=== PATIENT | male | born 1975 | race Caucasian/White ===

== ENCOUNTER 2017-05-03 20:02 | Inpatient (IN) | payer BC, OTHER ==
[2017-05-03 20:51] VITALS: BMI 28.6
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
[2017-05-03] MEDS ORDERED: guaiFENesin/D-METHORPHAN HB 10 ML UNIT-DOSE CUPS PO PRN (21:23)
[2017-05-03] MEDS ORDERED: LOPERAMIDE HCL 2 MG CAPSULE PO PRN (21:23)
[2017-05-03] MEDS ORDERED: MAG HYDROX/AL HYDROX/SIMETH 30 ML UNIT-DOSE CUP PO PRN (21:23)
[2017-05-03] MEDS ORDERED: IBUPROFEN 400 MG TABLET (FP) PO PRN (21:23)
[2017-05-03] MEDS ORDERED: diazePAM 5 MG TABLET PO ONE (21:23)
[2017-05-03] MEDS ORDERED: METHADONE HCL 10 MG TABLET (FOR DETOX USE ONLY) PO ONE ×2 (21:23→23:00)
[2017-05-03] MEDS ORDERED: P-EPHED 60MG/TRIPROLIDI 2.5MG TABLET PO PRN (21:23)
[2017-05-03] MEDS ORDERED: NICOTINE POLACRILEX 2 MG GUM BC PRN (21:23)
[2017-05-03] MEDS ORDERED: MENTHOL/PHENOL 1 EACH UD MM PRN (21:23)
[2017-05-03] MEDS ORDERED: MAGNESIUM CITRATE 300 ML BOTTLE PO PRN (21:23)
[2017-05-03] MEDS ORDERED: MAGNESIUM HYDROX 2400MG/30ML ORAL SUSPENSION 30 ML CUP PO PRN (21:23)
[2017-05-03] MEDS ORDERED: ACETAMINOPHEN 325 MG TABLET (FP) PO PRN (21:23)
[2017-05-03] MEDS: diazePAM 5 MG TABLET PO SCH (22:53)
[2017-05-03] MEDS: THIAMINE HCL 100 MG TABLET (FP) PO SCH (22:54)
[2017-05-03] MEDS: NICOTINE 14 MG/24 HOURS TOPICAL PATCH TD SCH (23:04)
[2017-05-04] MEDS: diazePAM 5 MG TABLET PO SCH ×3 (05:48→22:55)
[2017-05-04] MEDS ORDERED: METHADONE HCL 10 MG TABLET (FOR DETOX USE ONLY) PO SCH (10:00)
[2017-05-04] MEDS: PRENATAL VITAMINS W/ FOLIC ACID TABLET (FP) PO SCH (10:35)
[2017-05-04] MEDS: NICOTINE 14 MG/24 HOURS TOPICAL PATCH TD SCH (10:35)
[2017-05-04 10:37] LABS: ALBUMIN 3.2 g/dl (3.4-5.0); ANION GAP 7 (8-16); CO2 29 mmol/L (21-32); GLUCOSE,RANDOM 89 mg/dL (74-106); SGOT/AST 17 U/L (15-37); SGPT/ALT 23 U/L (12-78)
[2017-05-04 10:39] LABS: ALK PHOS 92 U/L (45-117); BILIRUBIN,TOTAL 0.6 mg/dL (0.2-1.0); CALCIUM 8.8 mg/dL (8.5-10.1); CREATININE 0.7 mg/dL (0.7-1.3); TOT PROT 5.9 g/dl (6.4-8.2)
[2017-05-04 10:46] LABS: MCH 29.4 pg (25.7-33.7); MCHC 34.4 g/dl (32.0-35.9); MEAN CELL VOLUME 85.5 fl (80-96); MEAN PLT VOLUME 8.8 fl (7.5-11.1); PLATELET COUNT 172 K/MM3 (134-434); RDW 13.5 % (11.9-15.9); WHITE BLOOD COUNT 5.3 K/mm3 (4.0-10.0)
--- NOTE | 2017-05-04 19:07 | PN ---
[facility] CIWA - CIWA Score Nausea/Vomitin-Mild Nausea/No Vomiting Muscle Tremors: 4-Moderate,w/Arms Extend Anxiety: 3 Agitation: 1-Slight > Activity Paroxysmal Sweats: 3 Orientation: 2-Disoriented Date<2 days Tacttile Disturbances: 2-Mild Itch/Numbness/Burn Auditory Disturbances: 0-None Visual Disturbances: 0-None Headache: 4-Moderately Severe CIWA-Ar Total Score: 20 BHS COWS - Scale Resting Pulse: 1= [place] 81-100 Sweatin=Flushed/Facial Moisture Restless Observation: 1= Difficult to Sit Still Pupil Size: 0= Normal to Room Light Bone or Joint Aches: 2= Severe Diffuse Aches Runny Nose/ Eye Tearin= Runny Nose/Eyes GI Upset > 30mins: 2= Nausea/Diarrhea Tremor Observation of Outstretched Hands: 2= Slight Tremor Visible Yawning Observation: 1= 1-2x During Session Anxiety or Irritability: 2=Irritable/Anxious Goose Flesh Skin: 3=Piloerection COWS Score: 18 S Progress Note (SOAP) Subjective: Body Aches, Sweating, [place], Diarrhea. Objective: PT. A & O X 2 (DISORIENTED ABOUT DAY / DATE). NO ACUTE DISTRESS. 05/04/17 19:04 Vital Signs Temperature 97.1 F L 05/04/17 17:42 Pulse Rate 75 05/04/17 17:42 Respiratory Rate 19 05/04/17 17:42 Blood Pressure 91/51 05/04/17 17:42 O2 Sat by Pulse Oximetry (%) Laboratory Tests 05/04/17 05/04/17 07:00 07:00 WBC 5.3 RBC 4.63 Hgb 13.6 Hct 39.6 MCV 85.5 MCHC 34.4 RDW 13.5 Plt Count 172 D MPV 8.8 Sodium 140 Potassium 4.0 Chloride 104 Carbon Dioxide 29 Anion Gap 7 L BUN 10 Creatinine 0.7 Creat Clearance w eGFR > 60 Random Glucose 89 Calcium 8.8 Total Bilirubin 0.6 D AST 17 D ALT 23 D Alkaline Phosphatase 92 D Total Protein 5.9 L Albumin 3.2 L LABS NOTED. 05/04/17 19:07 Assessment: 05/04/17 19:05 WITHDRAWAL SYMPTOMS. Plan: CONTINUE DETOX.
--- NOTE | 2017-05-04 19:23 | EKG ---
Test Reason : Blood Pressure : / mmHG Vent. Rate : 070 BPM Atrial Rate : 070 BPM P-R Int : 150 ms QRS Dur : 088 ms QT Int : 416 ms P-R-T Axes : 070 054 035 degrees QTc Int : 449 ms NORMAL SINUS RHYTHM POSSIBLE LEFT ATRIAL ENLARGEMENT BORDERLINE ECG NO PREVIOUS ECGS AVAILABLE Confirmed by LIYAH HARRY MD ([id number]) on 05/04/2017 7:23:00 PM Referred By: Confirmed By:LIYAH HARRY MD
[2017-05-04] MEDS: THIAMINE HCL 100 MG TABLET (FP) PO SCH (22:55)
[2017-05-05] MEDS: diazePAM 5 MG TABLET PO PRN ×2 (05:37→13:51)
[2017-05-05] MEDS: diazePAM 5 MG TABLET PO SCH ×2 (10:23→22:35)
[2017-05-05] MEDS: METHADONE HCL 5 MG TABLET (FOR DETOX USE ONLY) PO SCH (10:23)
[2017-05-05] MEDS: PRENATAL VITAMINS W/ FOLIC ACID TABLET (FP) PO SCH (10:23)
[2017-05-05] MEDS: NICOTINE 14 MG/24 HOURS TOPICAL PATCH TD SCH (10:24)
--- NOTE | 2017-05-05 15:46 | PN ---
S CIWA - CIWA Score Nausea/Vomitin Muscle Tremors: 4-Moderate,w/Arms Extend Anxiety: 4-Mod. Anxious/Guarded Agitation: 4-Moderately Restless Paroxysmal Sweats: 3 Orientation: 0-Oriented Tacttile Disturbances: 1-Very Mild Itch/Numbness Auditory Disturbances: 0-None Visual Disturbances: 0-None Headache: 3-Moderate CIWA-Ar Total Score: 22 BHS COWS - Scale Resting Pulse: 1= AR 81-100 Sweatin=Flushed/Facial Moisture Restless Observation: 3= Extraneous Movement Pupil Size: 0= Normal to Room Light Bone or Joint Aches: 2= Severe Diffuse Aches Runny Nose/ Eye Tearin= Runny Nose/Eyes GI Upset > 30mins: 1= Stomach Cramp Tremor Observation of Outstretched Hands: 2= Slight Tremor Visible Yawning Observation: 1= 1-2x During Session Anxiety or Irritability: 2=Irritable/Anxious Goose Flesh Skin: 0=Smooth Skin COWS Score: 16 BHS Progress Note (SOAP) Subjective: Anxious, sweating, stomach ache, interrupted sleep, tremor, chills Objective: 05/05/17 15:45 Last Vital Signs Temp Pulse Resp BP Pulse Ox 97.9 F 81 18 129/85 05/05/17 14:03 05/05/17 14:03 05/05/17 14:03 05/05/17 14:03 Laboratory Tests 05/04/17 05/04/17 05/04/17 07:00 07:00 07:00 WBC 5.3 RBC 4.63 Hgb 13.6 Hct 39.6 MCV 85.5 MCHC 34.4 RDW 13.5 Plt Count 172 D MPV 8.8 Sodium 140 Potassium 4.0 Chloride 104 Carbon Dioxide 29 Anion Gap 7 L BUN 10 Creatinine 0.7 Creat Clearance w eGFR > 60 Random Glucose 89 Calcium 8.8 Total Bilirubin 0.6 D AST 17 D ALT 23 D Alkaline Phosphatase 92 D Total Protein 5.9 L Albumin 3.2 L RPR Titer Nonreactive Labs noted Assessment: 05/05/17 15:46 Withdrawal symptoms Plan: Continue detox Encouraged to drink lots of water
[2017-05-05] MEDS: THIAMINE HCL 100 MG TABLET (FP) PO SCH (22:35)
[2017-05-05] MEDS: diphenhydrAMINE HCL 50 MG CAPSULE PO PRN (22:35)
[2017-05-06] MEDS: diazePAM 5 MG TABLET PO PRN ×2 (05:52→17:19)
--- NOTE | 2017-05-06 09:12 | PN ---
BHS Progress Note (SOAP) Subjective: Sweating,interrupted sleep,restless. C/O of pruritic rash on chest. Objective: 05/06/17 09:09 Vital Signs - 8 hr 05/06/17 05/06/17 03:30 06:19 Temperature 97.2 F L Pulse Rate 80 Respiratory 18 16 Rate Blood Pressure 122/87 Laboratory Tests 05/04/17 05/04/17 05/04/17 07:00 07:00 07:00 WBC 5.3 RBC 4.63 Hgb 13.6 Hct 39.6 MCV 85.5 MCHC 34.4 RDW 13.5 Plt Count 172 D MPV 8.8 Sodium 140 Potassium 4.0 Chloride 104 Carbon Dioxide 29 Anion Gap 7 L BUN 10 Creatinine 0.7 Creat Clearance w eGFR > 60 Random Glucose 89 Calcium 8.8 Total Bilirubin 0.6 D AST 17 D ALT 23 D Alkaline Phosphatase 92 D Total Protein 5.9 L Albumin 3.2 L RPR Titer Nonreactive Chest : dry,reddish, sand paper like rash. Assessment: 05/06/17 09:11 Withdrawal sx. Non-specific dermatitis Plan: Hydrocortisone cream 1% to chest qid Continue detox
[2017-05-06] MEDS: METHADONE HCL 5 MG TABLET (FOR DETOX USE ONLY) PO SCH (10:58)
[2017-05-06] MEDS: diazePAM 5 MG TABLET PO SCH ×2 (10:59→22:37)
[2017-05-06] MEDS: PRENATAL VITAMINS W/ FOLIC ACID TABLET (FP) PO SCH (10:59)
[2017-05-06] MEDS: NICOTINE 14 MG/24 HOURS TOPICAL PATCH TD SCH (12:12)
[2017-05-06] MEDS: HYDROCORTISONE 1% TOPICAL CREAM 30 GM TUBE TP SCH ×4 (12:21→22:38)
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
[2017-05-06] MEDS: THIAMINE HCL 100 MG TABLET (FP) PO SCH (22:37)
[2017-05-06] MEDS: diphenhydrAMINE HCL 50 MG CAPSULE PO PRN (22:38)
[2017-05-07] MEDS ORDERED: METHADONE HCL 10 MG TABLET (FOR DETOX USE ONLY) PO SCH (10:00)
[2017-05-07] MEDS ORDERED: diazePAM 5 MG TABLET PO SCH (10:00)
[2017-05-07] MEDS: PRENATAL VITAMINS W/ FOLIC ACID TABLET (FP) PO SCH (10:40)
[2017-05-07] MEDS: HYDROCORTISONE 1% TOPICAL CREAM 30 GM TUBE TP SCH ×4 (10:40→22:52)
[2017-05-07] MEDS: NICOTINE 14 MG/24 HOURS TOPICAL PATCH TD SCH (10:40)
--- NOTE | 2017-05-07 12:13 | PN ---
S Progress Note (SOAP) Subjective: ANXIETY,SWEATS/FATIGUE. Objective: 05/07/17 12:12 Vital Signs Temperature 99.2 F 05/07/17 09:46 Pulse Rate 98 H 05/07/17 09:46 Respiratory Rate 18 05/07/17 09:46 Blood Pressure 130/81 05/07/17 09:46 O2 Sat by Pulse Oximetry (%) Laboratory Last Values WBC 5.3 K/mm3 (4.0-10.0) 05/04/17 07:00 RBC 4.63 M/mm3 (4.00-5.60) 05/04/17 07:00 Hgb 13.6 GM/dL (11.7-16.9) 05/04/17 07:00 Hct 39.6 % (35.4-49) 05/04/17 07:00 MCV 85.5 fl (80-96) 05/04/17 07:00 MCHC 34.4 g/dl (32.0-35.9) 05/04/17 07:00 RDW 13.5 % (11.9-15.9) 05/04/17 07:00 Plt Count 172 K/MM3 (134-434) D 05/04/17 07:00 MPV 8.8 fl (7.5-11.1) 05/04/17 07:00 Sodium 140 mmol/L (136-145) 05/04/17 07:00 Potassium 4.0 mmol/L (3.5-5.1) 05/04/17 07:00 Chloride 104 mmol/L (98-107) 05/04/17 07:00 Carbon Dioxide 29 mmol/L (21-32) 05/04/17 07:00 Anion Gap 7 (8-16) L 05/04/17 07:00 BUN 10 mg/dL (7-18) 05/04/17 07:00 Creatinine 0.7 mg/dL (0.7-1.3) 05/04/17 07:00 Creat Clearance w eGFR > 60 (>60) 05/04/17 07:00 Random Glucose 89 mg/dL (74-106) 05/04/17 07:00 Calcium 8.8 mg/dL (8.5-10.1) 05/04/17 07:00 Total Bilirubin 0.6 mg/dL (0.2-1.0) D 05/04/17 07:00 AST 17 U/L (15-37) D 05/04/17 07:00 ALT 23 U/L (12-78) D 05/04/17 07:00 Alkaline Phosphatase 92 U/L (45-117) D 05/04/17 07:00 Total Protein 5.9 g/dl (6.4-8.2) L 05/04/17 07:00 Albumin 3.2 g/dl (3.4-5.0) L 05/04/17 07:00 RPR Titer Nonreactive (NONREACTIVE) 05/04/17 07:00 Hepatitis C Antibody <0.1 s/co ratio (0.0-0.9) 05/03/17 07:00 Assessment: 05/07/17 12:12 WITHDRAWAL SX Plan: CONTINUE DETOX
[2017-05-07] MEDS: diphenhydrAMINE HCL 50 MG CAPSULE PO PRN (22:52)
[2017-05-07] MEDS: THIAMINE HCL 100 MG TABLET (FP) PO SCH (22:52)
[2017-05-08] MEDS ORDERED: METHADONE HCL 5 MG TABLET (FOR DETOX USE ONLY) PO SCH (06:00)
[2017-05-08 06:46] VITALS: BP 134/91; PULSE 82; TEMP 96.2
--- NOTE | 2017-05-08 09:21 | DS ---
[facility] Detox Discharge Summary Admission Date: 05/03/17 Discharge Date: 05/08/17 - History Present History: Cannabis Dependence, Cocaine Dependence, Opioid Dependence, Sedative Dependence Additional Comments: DETOX COMPLETED. ALERT O X 3. NAD. REFERRED TO -[facility] FOR AFTERCARE. Pertinent Past History: CHRONIC BACK PAIN - Physical Exam Results Vital Signs: Vital Signs Temperature 96.2 F L 05/08/17 06:46 Pulse Rate 82 05/08/17 06:46 Respiratory Rate 18 05/08/17 06:46 Blood Pressure 134/91 05/08/17 06:46 O2 Sat by Pulse Oximetry (%) Pertinent Admission Physical Exam Findings: WITHDRAWAL SX Laboratory Last Values WBC 5.3 K/mm3 (4.0-10.0) 05/04/17 07:00 RBC 4.63 M/mm3 (4.00-5.60) 05/04/17 07:00 Hgb 13.6 GM/dL (11.7-16.9) 05/04/17 07:00 Hct 39.6 % (35.4-49) 05/04/17 07:00 MCV 85.5 fl (80-96) 05/04/17 07:00 MCHC 34.4 g/dl (32.0-35.9) 05/04/17 07:00 RDW 13.5 % (11.9-15.9) 05/04/17 07:00 Plt Count 172 K/MM3 (134-434) D 05/04/17 07:00 MPV 8.8 fl (7.5-11.1) 05/04/17 07:00 Sodium 140 mmol/L (136-145) 05/04/17 07:00 Potassium 4.0 mmol/L (3.5-5.1) 05/04/17 07:00 Chloride 104 mmol/L (98-107) 05/04/17 07:00 Carbon Dioxide 29 mmol/L (21-32) 05/04/17 07:00 Anion Gap 7 (8-16) L 05/04/17 07:00 BUN 10 mg/dL (7-18) 05/04/17 07:00 Creatinine 0.7 mg/dL (0.7-1.3) 05/04/17 07:00 Creat Clearance w eGFR > 60 (>60) 05/04/17 07:00 Random Glucose 89 mg/dL (74-106) 05/04/17 07:00 Calcium 8.8 mg/dL (8.5-10.1) 05/04/17 07:00 Total Bilirubin 0.6 mg/dL (0.2-1.0) D 05/04/17 07:00 AST 17 U/L (15-37) D 05/04/17 07:00 ALT 23 U/L (12-78) D 05/04/17 07:00 Alkaline Phosphatase 92 U/L (45-117) D 05/04/17 07:00 Total Protein 5.9 g/dl (6.4-8.2) L 05/04/17 07:00 Albumin 3.2 g/dl (3.4-5.0) L 05/04/17 07:00 RPR Titer Nonreactive (NONREACTIVE) 05/04/17 07:00 Hepatitis C Antibody <0.1 s/co ratio (0.0-0.9) 05/03/17 07:00 - Treatment Hospital Course: Detox Protocol Followed, Detoxed Safely, Responded well, Discharged Condition Good, Rehab Referral Accepted Patient has Accepted a Rehab Referral to: [facility] - Medication Discharge Medications: Ambulatory Orders NK [No Known Home Medication] 05/03/17 - Diagnosis (1) Cannabis dependence, uncomplicated Current Visit: Yes Status: Chronic (2) Cocaine dependence, uncomplicated Current Visit: Yes Status: Chronic (3) Nicotine dependence Current Visit: Yes Status: Chronic Qualifiers: Nicotine product type: cigarettes Substance use status: uncomplicated Qualified Code(s): F17.210 - Nicotine dependence, cigarettes, uncomplicated (4) Opioid dependence with withdrawal Current Visit: Yes Status: Chronic (5) Sedative, hypnotic or anxiolytic dependence with withdrawal, uncomplicated Current Visit: Yes Status: Chronic - AMA Did Patient Leave Against Medical Advice: No
== END 2017-05-08 09:25 | disposition home or self-care (01) | DRG 773 ==
LOC: YASAS 20:02 → Y3N 21:36
PROVIDERS: ADMIT Internal Medicine; ATTEND Internal Medicine
PROC: HZ2ZZZZ Detoxification Services for Substance Abuse Treatment (ICD-10-PCS; principal; 2017-05-08)
DX: F11.23 Opioid dependence with withdrawal (principal); F13.230 Sedative, hypnotic or anxiolytic dependence with withdrawal, uncomplicated; F14.20 Cocaine dependence, uncomplicated; F12.20 Cannabis dependence, uncomplicated; F17.210 Nicotine dependence, cigarettes, uncomplicated
CPT/HCPCS: 36415; 71020-TC; 80053; 85027; 86593; 86803; 93005; 93010

== ENCOUNTER 2017-10-27 10:47 | Inpatient (IN) | payer BC ==
[2017-10-27 11:03] VITALS: BMI 31.6
--- NOTE | 2017-10-27 11:50 | HP ---
COWS - Scale Resting Pulse: 1= [place] 81-100 Sweatin=Flushed/Facial Moisture Restless Observation: 1= Difficult to Sit Still Pupil Size: 0= Normal to Room Light Bone or Joint Aches: 2= Severe Diffuse Aches Runny Nose/ Eye Tearin= Runny Nose/Eyes GI Upset > 30mins: 2= Nausea/Diarrhea Tremor Observation: 2= Slight Tremor Visible Yawning Observation: 2= >3x During Session Anxiety or Irritability: 2=Irritable/Anxious Goose Flesh Skin: 3=Piloerection COWS Score: 19 Admission ROS S - HPI Chief Complaint: I am here for detox and get it right. Allergies/Adverse Reactions: Allergies Allergy/AdvReac Type Severity Reaction Status Date / Time cocoa Allergy Severe Swelling Verified 10/27/17 11:15 No Known Drug Allergies Allergy Unknown Verified 10/27/17 11:15 chocolate Allergy Severe Swelling Uncoded 10/27/17 11:15 History of Present Illness: pt is a 42yr old male with a history of heroin dependence seeking detox for treatment. Exam Limitations: No Limitations - Ebola screening Have you traveled outside of the country in the last 21 days: No Have you had contact with anyone from an Ebola affected area: No Have you been sick,other than usual withdrawal symptoms: No Do you have a fever: No - Review of Systems Constitutional: Chills, Diaphoresis EENT: reports: No Symptoms Reported Respiratory: reports: No Symptoms reported Cardiac: reports: No Symptoms Reported GI: reports: Constipated, Poor Appetite, Poor Fluid Intake, Indigestion : reports: No Symptoms Reported Musculoskeletal: reports: No Symptoms Reported Integumentary: reports: Flushing, Rash (to chest and upper back area acne), Sweating Neuro: reports: Tingling, Tremors Endocrine: reports: Excessive Sweating, Flushing, Intolerance to Cold, Intolerance to Heat Hematology: reports: No Symptoms Reported Psychiatric: reports: Judgement Intact, Mood/Affect Appropiate, Orientated x3, Agitated, Anxious Other Systems: Reviewed and Negative Patient History - Patient Medical History Hx Anemia: No Hx Asthma: No Hx Chronic Obstructive Pulmonary Disease (COPD): No Hx Cancer: No Hx Cardiac Disorders: No Hx Congestive Heart Failure: No Hx Hypertension: No Hx Hypercholesterolemia: No Hx Pacemaker: No HX Cerebrovascular Accident: No Hx Seizures: No Hx Dementia: No Hx Diabetes: No Hx Gastrointestinal Disorders: No Hx Liver Disease: No Hx Genitourinary Disorders: No Hx Sexually Transmitted Disorders: No Hx Renal Disease (ESRD): No Hx Thyroid Disease: No Hx Human Immunodeficiency Virus (HIV): No (neg) Hx Hepatitis C: No (neg) Hx Depression: No Hx Suicide Attempt: No (denies) Hx Bipolar Disorder: No Hx Schizophrenia: No - Patient Surgical History Past Surgical History: Yes Hx Neurologic Surgery: No Hx Cataract Extraction: No Hx Cardiac Surgery: No Hx Lung Surgery: No Hx Breast Surgery: No Hx Breast Biopsy: No Hx Abdominal Surgery: No Hx Appendectomy: No Hx Cholecystectomy: No Hx Genitourinary Surgery: No Hx Section: No Hx Orthopedic Surgery: No Other Surgical History: HERNIA REPAIR AT AGE 1 left Anesthesia Reaction: No - PPD History Documented Results: Positive w/proof PPD to be Administered?: No - Reproductive History Patient is a Female of Child Bearing Age (11 -55 yrs old): No - Smoking Cessation Smoking history: Current every day smoker Have you smoked in the past 12 months: Yes Aproximately how many cigarettes per day: 10 If you are a former smoker, when did you quit?: 6 MONTHS AGO Cigars Per Day: 0 Hx Chewing Tobacco Use: No Initiated information on smoking cessation: Yes 'Breaking Loose' booklet given: 10/27/17 - Substance & Tx. History Hx Substance Use: No Substance Use Type: Heroin Hx Substance Use Treatment: Yes (last detox 03/2017 [facility]) - Substances Abused Heroin Route: Inhalation Frequency: Daily Amount used: 6-8 BAGS Age of first use: 23 Date of Last Use: 10/27/17 Non-Rx Methadone Route: Oral Frequency: 1-2 times per week Amount used: 50MG Age of first use: 22 Date of Last Use: 10/25/17 Family Disease History - Family Disease History Family Disease History: Diabetes: Grandparent (LUNGS), Mother (METASTATIC CA. AND ), Brother, [place]: Grandparent, Mother Admission Physical Exam [facility] - Vital Signs Vital Signs: Vital Signs - 24 hr 10/27/17 10:50 Temperature 98.2 F Pulse Rate 94 H Respiratory 18 Rate Blood Pressure 136/75 - Physical General Appearance: Yes: Appropriately Dressed, Obese, Tremorous, Irritable, Sweating, Anxious HEENTM: Yes: Normal Voice, Tm's normal Respiratory: Yes: Lungs Clear, Normal Breath Sounds, No Respiratory Distress Breast: Yes: Within Normal Limits Cardiology: Yes: Regular Rhythm, Regular Rate, S1, S2 Abdominal: Yes: Normal Bowel Sounds, Non Tender, Soft Genitourinary: Yes: Within Normal Limits Back: Yes: Normal Inspection Musculoskeletal: Yes: full range of Motion, Back pain Extremities: Yes: Normal Inspection, Non-Tender, Tremors Neurological: Yes: Fully Oriented, Alert, Normal Response Integumentary: Yes: Normal Color, Diaphoresis Lymphatic: Yes: Within Normal Limits - Diagnostic (1) Nicotine dependence Current Visit: Yes Status: Chronic Qualifiers: Nicotine product type: cigarettes Substance use status: uncomplicated Qualified Code(s): F17.210 - Nicotine dependence, cigarettes, uncomplicated (2) Opioid dependence with withdrawal Current Visit: No Status: Chronic (3) Acne-like skin bumps Current Visit: Yes Status: Acute Cleared for Admission [facility] - Detox or Rehab [facility] Level of Care: Medically Managed Detox Regimen/Protocol: Methadone [facility] Breath Alcohol Content Breath Alcohol Content: 0 Urine Drug Screen - Results Drug Screen Negative: No Urine Drug Screen Results: OPI-Opiates, MTD-Methadone
[2017-10-27] MEDS ORDERED: MAGNESIUM HYDROX 2400MG/30ML ORAL SUSPENSION 30 ML CUP PO PRN (12:20)
[2017-10-27] MEDS ORDERED: IBUPROFEN 400 MG TABLET (FP) PO PRN (12:20)
[2017-10-27] MEDS ORDERED: MENTHOL/PHENOL 1 EACH UD MM PRN (12:20)
[2017-10-27] MEDS ORDERED: P-EPHED 60MG/TRIPROLIDI 2.5MG TABLET PO PRN (12:20)
[2017-10-27] MEDS ORDERED: METHADONE HCL 10 MG TABLET (FOR DETOX USE ONLY) PO ONE ×2 (12:20→23:00)
[2017-10-27] MEDS ORDERED: ACETAMINOPHEN 325 MG TABLET (FP) PO PRN (12:20)
[2017-10-27] MEDS ORDERED: guaiFENesin/D-METHORPHAN HB 10 ML UNIT-DOSE CUPS PO PRN (12:20)
[2017-10-27] MEDS ORDERED: MAGNESIUM CITRATE 300 ML BOTTLE PO PRN (12:20)
[2017-10-27] MEDS ORDERED: NICOTINE POLACRILEX 4 MG GUM BUC PRN (12:20)
[2017-10-27] MEDS ORDERED: MAG HYDROX/AL HYDROX/SIMETH 30 ML UNIT-DOSE CUP PO PRN (12:20)
[2017-10-27] MEDS ORDERED: hydrOXYzine PAMOATE 50 MG CAPSULE (FP) PO PRN (12:20)
[2017-10-27] MEDS ORDERED: LOPERAMIDE HCL 2 MG CAPSULE PO PRN (12:20)
[2017-10-27] MEDS: diazePAM 5 MG TABLET PO PRN ×2 (14:02→22:09)
[2017-10-27 14:42] LABS: URINE APPEARANCE SLCLOUDY; URINE BILIRUBIN NEGATIVE (NEGATIVE); URINE BLOOD NEGATIVE (NEGATIVE); URINE COLOR YELLOW; URINE GLUCOSE (UA) NEGATIVE (NEGATIVE); URINE KETONE NEGATIVE (NEGATIVE); URINE NITRITE NEGATIVE (NEGATIVE); URINE PROTEIN NEGATIVE (NEGATIVE); URINE UROBILINOGEN NEGATIVE mg/dL (0.2-1.0)
[2017-10-27 20:02] LABS: URINE LEUK ESTERASE Negative (NEGATIVE)
[2017-10-27] MEDS: THIAMINE HCL 100 MG TABLET (FP) PO SCH (22:09)
[2017-10-27] MEDS: CLINDAMYCIN PHOSPHATE 1% TOPICAL SOLUTION 30 ML BOTTLE TP SCH (23:10)
[2017-10-28] MEDS ORDERED: METHADONE HCL 10 MG TABLET (FOR DETOX USE ONLY) PO ONE (10:00)
[2017-10-28 10:05] LABS: MCH 28.9 pg (25.7-33.7); MCHC 33.7 g/dl (32.0-35.9); MEAN PLT VOLUME 8.5 fl (7.5-11.1); PLATELET COUNT 156 K/MM3 (134-434); RDW 13.7 % (11.9-15.9); WHITE BLOOD COUNT 8.3 K/mm3 (4.0-10.0)
[2017-10-28] MEDS: PRENATAL VITAMINS W/ FOLIC ACID TABLET (FP) PO SCH (10:23)
[2017-10-28] MEDS: diazePAM 5 MG TABLET PO PRN (10:23)
[2017-10-28 10:24] LABS: ALBUMIN 3.4 g/dl (3.4-5.0); ALK PHOS 91 U/L (45-117); ANION GAP 4 (8-16); BILIRUBIN,TOTAL 0.5 mg/dL (0.2-1.0); CO2 31 mmol/L (21-32); CREATININE 0.8 mg/dL (0.7-1.3); GLUCOSE,RANDOM 104 mg/dL (74-106); SGOT/AST 17 U/L (15-37); SGPT/ALT 25 U/L (12-78); TOT PROT 6.5 g/dl (6.4-8.2)
[2017-10-28] MEDS: NICOTINE 21 MG/24 HOURS TOPICAL PATCH TD SCH (10:27)
[2017-10-28] MEDS ORDERED: cloNIDine HCL 0.1 MG TABLET PO ONE (11:05)
[2017-10-28 11:07] LABS: HIV 1 & 2 AB NEGATIVE; HIV 1 AGp24 NEGATIVE
--- NOTE | 2017-10-28 11:08 | PN ---
BHS COWS - Scale Resting Pulse: 2= [place] 101-120 Sweatin=Flushed/Facial Moisture Restless Observation: 1= Difficult to Sit Still Pupil Size: 0= Normal to Room Light Bone or Joint Aches: 2= Severe Diffuse Aches Runny Nose/ Eye Tearin= Runny Nose/Eyes GI Upset > 30mins: 1= Stomach Cramp Tremor Observation of Outstretched Hands: 2= Slight Tremor Visible Yawning Observation: 2= >3x During Session Anxiety or Irritability: 2=Irritable/Anxious Goose Flesh Skin: 3=Piloerection COWS Score: 19 BHS Progress Note (SOAP) Subjective: chills sweats shakes interrupted sleep agitation anxiety body aches Objective: 10/28/17 11:06 Vital Signs Temperature 102.2 F H 10/28/17 09:35 Pulse Rate 112 H 10/28/17 09:35 Respiratory Rate 18 10/28/17 09:35 Blood Pressure 137/72 10/28/17 09:35 O2 Sat by Pulse Oximetry (%) Laboratory Tests 10/27/17 10/28/17 10/28/17 14:00 07:00 07:00 WBC 8.3 D RBC 4.85 Hgb 14.0 Hct 41.7 MCV 86.0 MCH 28.9 MCHC 33.7 RDW 13.7 Plt Count 156 MPV 8.5 Manual Slide Review No Result Required. Sodium 138 Potassium 3.9 Chloride 103 Carbon Dioxide 31 Anion Gap 4 L BUN 17 D Creatinine 0.8 Creat Clearance w eGFR > 60 Random Glucose 104 Calcium 8.0 L Total Bilirubin 0.5 AST 17 ALT 25 Alkaline Phosphatase 91 Total Protein 6.5 Albumin 3.4 Urine Color Yellow Urine Appearance Slcloudy Urine pH 6.0 Ur Specific [place] 1.024 Urine Protein Negative Urine Glucose (UA) Negative Urine Ketones Negative Urine Blood Negative Urine Nitrite Negative Urine Bilirubin Negative Urine Urobilinogen Negative Ur Leukocyte Esterase Negative aaox3 ambulating no acute distress Assessment: 10/28/17 11:06 withdrawal sx Plan: continue detox increase fluids clonidine 0.1mg x one monitor temp.
[2017-10-28] MEDS: SELENIUM SULFIDE 2.5% LOTION 4 OZ. TP SCH (13:26)
[2017-10-28] MEDS: CLINDAMYCIN PHOSPHATE 1% TOPICAL SOLUTION 30 ML BOTTLE TP SCH ×2 (13:26→23:52)
[2017-10-28] MEDS: THIAMINE HCL 100 MG TABLET (FP) PO SCH (23:52)
--- NOTE | 2017-10-29 01:03 | EKG ---
Test Reason : Blood Pressure : / mmHG Vent. Rate : 067 BPM Atrial Rate : 067 BPM P-R Int : 160 ms QRS Dur : 090 ms QT Int : 412 ms P-R-T Axes : 060 033 010 degrees QTc Int : 435 ms NORMAL SINUS RHYTHM NORMAL ECG WHEN COMPARED WITH ECG OF 03-MAY-2017 21:26, NO SIGNIFICANT CHANGE WAS FOUND Confirmed by TERESA YANES MD ([id number]) on 10/29/2017 1:02:51 AM Referred By: Confirmed By:TERESA YANES MD
[2017-10-29] MEDS ORDERED: METHADONE HCL 5 MG TABLET (FOR DETOX USE ONLY) PO ONE (10:00)
--- NOTE | 2017-10-29 10:24 | PN ---
[facility] COWS - Scale Resting Pulse: 0= [place] 80 or Below Sweatin=Flushed/Facial Moisture Restless Observation: 1= Difficult to Sit Still Pupil Size: 0= Normal to Room Light Bone or Joint Aches: 2= Severe Diffuse Aches Runny Nose/ Eye Tearin= Runny Nose/Eyes GI Upset > 30mins: 2= Nausea/Diarrhea Tremor Observation of Outstretched Hands: 2= Slight Tremor Visible Yawning Observation: 2= >3x During Session Anxiety or Irritability: 2=Irritable/Anxious Goose Flesh Skin: 0=Smooth Skin COWS Score: 15 [facility] Progress Note (SOAP) Subjective: sweats interrupted sleep tired irritable Objective: 10/29/17 10:23 Vital Signs Temperature 97.7 F 10/29/17 06:00 Pulse Rate 73 10/29/17 06:00 Respiratory Rate 18 10/29/17 06:00 Blood Pressure 91/49 10/29/17 06:00 O2 Sat by Pulse Oximetry (%) Laboratory Tests 10/27/17 10/28/17 10/28/17 14:00 07:00 07:00 WBC 8.3 D RBC 4.85 Hgb 14.0 Hct 41.7 MCV 86.0 MCH 28.9 MCHC 33.7 RDW 13.7 Plt Count 156 MPV 8.5 Manual Slide Review No Result Required. Sodium Potassium Chloride Carbon Dioxide Anion Gap BUN Creatinine Creat Clearance w eGFR Random Glucose Calcium Total Bilirubin AST ALT Alkaline Phosphatase Total Protein Albumin Urine Color Yellow Urine Appearance Slcloudy Urine pH 6.0 Ur Specific [place] 1.024 Urine Protein Negative Urine Glucose (UA) Negative Urine Ketones Negative Urine Blood Negative Urine Nitrite Negative Urine Bilirubin Negative Urine Urobilinogen Negative Ur Leukocyte Esterase Negative RPR Titer HIV 1&2 Antibody Screen Negative HIV P24 Antigen Negative 10/28/17 10/28/17 07:00 07:00 WBC RBC Hgb Hct MCV MCH MCHC RDW Plt Count MPV Manual Slide Review Sodium 138 Potassium 3.9 Chloride 103 Carbon Dioxide 31 Anion Gap 4 L BUN 17 D Creatinine 0.8 Creat Clearance w eGFR > 60 Random Glucose 104 Calcium 8.0 L Total Bilirubin 0.5 AST 17 ALT 25 Alkaline Phosphatase 91 Total Protein 6.5 Albumin 3.4 Urine Color Urine Appearance Urine pH Ur Specific [place] Urine Protein Urine Glucose (UA) Urine Ketones Urine Blood Urine Nitrite Urine Bilirubin Urine Urobilinogen Ur Leukocyte Esterase RPR Titer Nonreactive HIV 1&2 Antibody Screen HIV P24 Antigen aaox3 ambulating no acute distress Assessment: 10/29/17 10:23 withdrawal sx Plan: continue detox increase fluids
[2017-10-29] MEDS: PRENATAL VITAMINS W/ FOLIC ACID TABLET (FP) PO SCH (10:25)
[2017-10-29] MEDS: CLINDAMYCIN PHOSPHATE 1% TOPICAL SOLUTION 30 ML BOTTLE TP SCH (10:26)
[2017-10-29] MEDS: NICOTINE 21 MG/24 HOURS TOPICAL PATCH TD SCH (10:26)
[2017-10-29] MEDS: SELENIUM SULFIDE 2.5% LOTION 4 OZ. TP SCH (10:28)
[2017-10-29 13:50] VITALS: BP 123/79; PULSE 93; TEMP 98.1
--- NOTE | 2017-10-29 15:10 | PN ---
[facility] Progress Note Note: pt refused to complete detox and signed out AMA.
--- NOTE | 2017-10-29 15:13 | DS ---
[facility] Detox Discharge Summary Admission Date: 10/27/17 Discharge Date: 10/29/17 - History Present History: Alcohol Dependence, Cocaine Dependence, Opioid Dependence, Sedative Dependence - Physical Exam Results Vital Signs: Vital Signs Temperature 98.1 F 10/29/17 13:50 Pulse Rate 93 H 10/29/17 13:50 Respiratory Rate 18 10/29/17 13:50 Blood Pressure 123/79 10/29/17 13:50 O2 Sat by Pulse Oximetry (%) - Treatment Hospital Course: Discharged Condition Good - Medication Discharge Medications: Ambulatory Orders NK [No Known Home Medication] 05/03/17 - Diagnosis (1) Nicotine dependence Status: Chronic Qualifiers: Nicotine product type: cigarettes Substance use status: uncomplicated Qualified Code(s): F17.210 - Nicotine dependence, cigarettes, uncomplicated (2) Opioid dependence with withdrawal Status: Chronic (3) Acne-like skin bumps Status: Chronic - AMA Did Patient Leave Against Medical Advice: Yes
[2017-10-30] MEDS ORDERED: METHADONE HCL 5 MG TABLET (FOR DETOX USE ONLY) PO ONE (10:00)
[2017-10-31] MEDS ORDERED: METHADONE HCL 10 MG TABLET (FOR DETOX USE ONLY) PO ONE (10:00)
[2017-11-01] MEDS ORDERED: METHADONE HCL 5 MG TABLET (FOR DETOX USE ONLY) PO ONE (06:00)
== END 2017-10-29 13:10 | disposition left against medical advice (07) | DRG 770 ==
LOC: YASAS 10:47 → Y6N 13:00
PROVIDERS: ADMIT Internal Medicine; ATTEND Internal Medicine
PROC: HZ2ZZZZ Detoxification Services for Substance Abuse Treatment (ICD-10-PCS; principal; 2017-10-27)
DX: F11.23 Opioid dependence with withdrawal (principal); F17.210 Nicotine dependence, cigarettes, uncomplicated; L70.9 Acne, unspecified; Z91.011 Allergy to milk products
CPT/HCPCS: 36415; 80053; 81003; 85027; 86593; 87389; 93005; 93010

== ENCOUNTER 2019-02-14 14:59 | Inpatient (IN) | payer OTHER ==
--- NOTE | 2019-02-14 16:40 | HP ---
COWS - Scale Resting Pulse: 0= [place] 80 or Below Sweatin= Chills/Flushing Restless Observation: 3= Extraneous Movement Pupil Size: 1= Pupils >than Normal Bone or Joint Aches: 2= Severe Diffuse Aches Runny Nose/ Eye Tearin= Runny Nose/Eyes GI Upset > 30mins: 3= Vomiting/Diarrhea Tremor Observation: 2= Slight Tremor Visible Yawning Observation: 2= >3x During Session Anxiety or Irritability: 2=Irritable/Anxious Goose Flesh Skin: 0=Smooth Skin COWS Score: 18 CIWA Score Nausea/Vomitin Muscle Tremors: 2 Anxiety: 2 Agitation: 2 Paroxysmal Sweats: 1-Minimal Palms Moist Orientation: 0-Oriented Tacttile Disturbances: 1-Very Mild Itch/Numbness Auditory Disturbances: 1-Very Mild Visual Disturbances: 0-None Headache: 2-Mild CIWA-Ar Total Score: 13 - Admission Criteria [facility] Guidelines: Admission for Medically Managed Detox: Requires at least one of the followin. CIWA greater than 12 2. Seizures within the past 24 hours 3. Delirium tremens within the past 24 hours 4. Hallucinations within the past 24 hours 5. Acute intervention needed for co occurring medical disorder 6. Acute intervention needed for co occurring psychiatric disorder 7. Severe withdrawal that cannot be handled at a lower level of care (continued vomiting, continued diarrhea, abnormal vital signs) requiring intravenous medication and/or fluids 8. Patient presents the following: CIWA greater than 12 Admission Criteria Met: Admission criteria met Admission ROS [facility] Chief Complaint: i need help to stop using heroin,xanax Allergies/Adverse Reactions: Allergies Allergy/AdvReac Type Severity Reaction Status Date / Time cocoa Allergy Severe Swelling Verified 02/14/19 16:40 No Known Drug Allergies Allergy Unknown Verified 02/14/19 16:40 chocolate Allergy Severe Swelling Uncoded 02/14/19 16:40 History of Present Illness: this 44 years old male with heroin and xanax dependence,withdrawal symptom, seeking detox had previous admission before last detox 10/27/17 to 10/29/17,not completed low back pain no smoking weight loss longest period of sobriety 3 years plan for correction program Exam Limitations: No Limitations - Ebola screening Have you traveled outside of the country in the last 21 days: No (N) Have you had contact with anyone from an Ebola affected area: No Do you have a fever: No - Review of Systems Constitutional: Chills, Night Sweats, Weight Stable, Unintentional Wgt. Loss, Unexplained wgt Loss EENT: reports: Tearing, Nose Congestion Respiratory: reports: No Symptoms reported Cardiac: reports: No Symptoms Reported GI: reports: Diarrhea, Nausea, Vomiting, Abdominal cramping Musculoskeletal: reports: Back Pain, Joint Pain, Muscle Pain, Joint Stiffness Integumentary: reports: Dryness Endocrine: reports: No Symptoms Reported Hematology: reports: No Symptoms Reported Psychiatric: reports: No Sypmtoms Reported, Judgement Intact, Mood/Affect Appropiate, Orientated x3, other Patient History - Patient Medical History Hx Anemia: No Hx Asthma: No Hx Chronic Obstructive Pulmonary Disease (COPD): No Hx Cancer: No Hx Cardiac Disorders: No Hx Congestive Heart Failure: No Hx Hypertension: No Hx Hypercholesterolemia: No Hx Pacemaker: No HX Cerebrovascular Accident: No Hx Seizures: No Hx Dementia: No Hx Diabetes: No Hx Gastrointestinal Disorders: No Hx Liver Disease: No Hx Genitourinary Disorders: No Hx Sexually Transmitted Disorders: No Hx Renal Disease (ESRD): No Hx Thyroid Disease: No Hx Human Immunodeficiency Virus (HIV): No (neg last 12/20) Hx Hepatitis C: No (neg) Hx Depression: No Hx Suicide Attempt: No (denies) Hx Bipolar Disorder: No Hx Schizophrenia: No Other Medical History: no suiicdal,no homicidal - Patient Surgical History Past Surgical History: Yes Hx Neurologic Surgery: No Hx Cataract Extraction: No Hx Cardiac Surgery: No Hx Lung Surgery: No Hx Breast Surgery: No Hx Breast Biopsy: No Hx Abdominal Surgery: No Hx Appendectomy: No Hx Cholecystectomy: No Hx Genitourinary Surgery: No Hx Section: No Hx Orthopedic Surgery: No Other Surgical History: HERNIA REPAIR AT AGE 1 left Anesthesia Reaction: No - PPD History Previous Implant?: Yes Documented Results: Positive w/o proof Implanted On Prior R Admission?: No PPD to be Administered?: No - Smoking Cessation Smoking history: Current every day smoker Have you smoked in the past 12 months: Yes Aproximately how many cigarettes per day: 10 If you are a former smoker, when did you quit?: 6 MONTHS AGO Cigars Per Day: 0 Hx Chewing Tobacco Use: No Initiated information on smoking cessation: Yes 'Breaking Loose' booklet given: 02/14/19 - Substance & Tx. History Hx Alcohol Use: No Hx Substance Use: Yes Substance Use Type: Heroin, Marijuana, Tranquilizers Hx Substance Use Treatment: Yes ([facility] 10/27/17 to 10/29/17) - Substances Abused Heroin Route: Injection Frequency: Daily Amount used: 10 bags Age of first use: 23 Date of Last Use: 02/14/19 Alprazolam (Xanax) Route: Oral Amount used: 4 mgs to 16 mgs Age of first use: 30 Date of Last Use: 02/13/19 Marijuana/Hashish Route: Smoking Frequency: Daily Amount used: 10$ Age of first use: 11 Date of Last Use: 02/13/19 Family Disease History - Family Disease History Family Disease History: Diabetes: Grandparent (LUNGS), Mother (METASTATIC CA. AND ), Brother, CA: Grandparent, Mother, Other: Father (murmured ) Admission Physical Exam [facility] - Vital Signs Vital Signs: Vital Signs Temperature 97.3 F L 02/15/19 07:31 Pulse Rate 62 02/15/19 07:31 Respiratory Rate 18 02/15/19 07:31 Blood Pressure 134/69 02/15/19 07:31 O2 Sat by Pulse Oximetry (%) - Physical General Appearance: Yes: Moderate Distress, Tremorous, Irritable, Sweating, Anxious HEENTM: Yes: Normocephalic, ONESIMO, Pharynx Normal Respiratory: Yes: Lungs Clear, Normal Breath Sounds, No Respiratory Distress Neck: Yes: Within Normal Limits, Supple, Trachea in good position Breast: Yes: Within Normal Limits Cardiology: Yes: Within Normal Limits, Regular Rhythm, Regular Rate, S1, S2 Abdominal: Yes: Within Normal Limits, Normal Bowel Sounds, Non Tender, Flat, Soft Genitourinary: Yes: Within Normal Limits Musculoskeletal: Yes: full range of Motion, Back pain, Joint Stiffness, Muscle Pain Extremities: Yes: Normal Range of Motion, Tremors Neurological: Yes: field evidence technician II-XII NML intact, Alert Integumentary: Yes: Dry Lymphatic: Yes: Within Normal Limits - Diagnostic (1) Opioid dependence with withdrawal Current Visit: No Status: Chronic (2) Low back pain Current Visit: No Status: Acute (3) S/P left inguinal herniorrhaphy Current Visit: No Status: Acute (4) Cannabis dependence, uncomplicated Current Visit: No Status: Chronic (5) Nicotine dependence Current Visit: No Status: Chronic Qualifiers: Nicotine product type: cigarettes Substance use status: uncomplicated Qualified Code(s): F17.210 - Nicotine dependence, cigarettes, uncomplicated (6) Sedative, hypnotic or anxiolytic dependence with withdrawal, uncomplicated Current Visit: No Status: Chronic Cleared for Admission [facility] - Detox or Rehab S Level of Care: Medically Managed Detox Regimen/Protocol: Methadone/Valium S Breath Alcohol Content Breath Alcohol Content: 0 Inpatient Rehab Admission - Rehab Decision to Admit Inpatient rehab admission?: No
[2019-02-14] MEDS ORDERED: BISMUTH SUBSALICYLATE 524 MG/30 ML UD PO PRN (16:50)
[2019-02-14] MEDS ORDERED: MAGNESIUM CITRATE 300 ML BOTTLE PO PRN (16:50)
[2019-02-14] MEDS ORDERED: IBUPROFEN 400 MG TABLET (FP) PO PRN (16:50)
[2019-02-14] MEDS ORDERED: MENTHOL/PHENOL 1 EACH UD MM PRN (16:50)
[2019-02-14] MEDS ORDERED: MAGNESIUM HYDROX 2400MG/30ML ORAL SUSPENSION 30 ML CUP PO PRN (16:50)
[2019-02-14] MEDS ORDERED: MAG HYDROX/AL HYDROX/SIMETH 30 ML UNIT-DOSE CUP PO PRN (16:50)
[2019-02-14] MEDS ORDERED: ACETAMINOPHEN 325 MG TABLET (FP) PO PRN ×2 (16:50)
[2019-02-14] MEDS ORDERED: METHOCARBAMOL 500 MG TABLET PO PRN (16:50)
[2019-02-14] MEDS ORDERED: diazePAM 5 MG TABLET PO PRN (16:53)
[2019-02-14 16:54] VITALS: BMI 28.1
[2019-02-14] MEDS ORDERED: METHADONE HCL 10 MG TABLET (FOR DETOX USE ONLY) PO ONE ×2 (17:15→23:00)
[2019-02-14] MEDS: diazePAM 5 MG TABLET PO SCH (22:35)
[2019-02-14] MEDS: THIAMINE HCL 100 MG TABLET (FP) PO SCH (22:35)
[2019-02-15] MEDS: diazePAM 5 MG TABLET PO SCH ×3 (06:19→22:24)
[2019-02-15] MEDS ORDERED: METHADONE HCL 10 MG TABLET (FOR DETOX USE ONLY) PO ONE (10:00)
[2019-02-15] MEDS: PRENATAL VITAMINS W/ FOLIC ACID TABLET (FP) PO SCH (10:25)
[2019-02-15] MEDS: cloNIDine HCL 0.1 MG TABLET PO PRN (10:25)
[2019-02-15 11:27] LABS: HEMATOCRIT 33.6 % (35.4-49); MCH 30.3 pg (25.7-33.7); MCHC 35.8 g/dl (32.0-35.9); MEAN CELL VOLUME 84.6 fl (80-96); MEAN PLT VOLUME 8.9 fl (7.5-11.1); PLATELET COUNT 157 K/MM3 (134-434); RBC 3.98 M/mm3 (4.00-5.60); RDW 13.9 % (11.9-15.9); WHITE BLOOD COUNT 4.5 K/mm3 (4.0-10.0)
[2019-02-15 11:58] LABS: ALK PHOS 84 U/L (45-117); ANION GAP 6 MMOL/L (8-16); BILIRUBIN,TOTAL 0.4 mg/dL (0.2-1); BLOOD UREA NITROGEN 15 mg/dL (7-18); CALCIUM 7.9 mg/dL (8.5-10.1); CHLORIDE 105 mmol/L (98-107); CO2 30 mmol/L (21-32); CREATININE 0.7 mg/dL (0.55-1.3); GLUCOSE,RANDOM 105 mg/dL (74-106); POTASSIUM 3.7 mmol/L (3.5-5.1); SGOT/AST 151 U/L (15-37); SGPT/ALT 49 U/L (13-61); SODIUM 140 mmol/L (136-145); TOT PROT 5.6 g/dl (6.4-8.2)
--- NOTE | 2019-02-15 13:17 | PN ---
S CIWA - CIWA Score Nausea/Vomitin Muscle Tremors: 2 Anxiety: 3 Agitation: 3 Paroxysmal Sweats: 2 Orientation: 0-Oriented Tacttile Disturbances: 0-None Auditory Disturbances: 0-None Visual Disturbances: 0-None Headache: 0-None Present CIWA-Ar Total Score: 12 [facility] COWS - Scale Resting Pulse: 0= [place] 80 or Below Sweatin= Chills/Flushing Restless Observation: 1= Difficult to Sit Still Pupil Size: 0= Normal to Room Light Bone or Joint Aches: 1= Mild Discomfort Runny Nose/ Eye Tearin= Runny Nose/Eyes GI Upset > 30mins: 2= Nausea/Diarrhea Tremor Observation of Outstretched Hands: 1= Tremor [place], Not Seen Yawning Observation: 2= >3x During Session Anxiety or Irritability: 2=Irritable/Anxious Goose Flesh Skin: 0=Smooth Skin COWS Score: 12 S Progress Note (SOAP) Subjective: c/o decrease appetite, interrupted sleep, body aches Objective: 02/15/19 13:14 Vital Signs Temperature 97.9 F 02/15/19 09:41 Pulse Rate 64 02/15/19 09:41 Respiratory Rate 14 02/15/19 09:41 Blood Pressure 113/72 02/15/19 09:41 O2 Sat by Pulse Oximetry (%) Laboratory Last Values WBC 4.5 K/mm3 (4.0-10.0) 02/15/19 07:35 RBC 3.98 M/mm3 (4.00-5.60) L 02/15/19 07:35 Hgb 12.0 GM/dL (11.7-16.9) 02/15/19 07:35 Hct 33.6 % (35.4-49) L D 02/15/19 07:35 MCV 84.6 fl (80-96) 02/15/19 07:35 MCH 30.3 pg (25.7-33.7) 02/15/19 07:35 MCHC 35.8 g/dl (32.0-35.9) 02/15/19 07:35 RDW 13.9 % (11.9-15.9) 02/15/19 07:35 Plt Count 157 K/MM3 (134-434) 02/15/19 07:35 MPV 8.9 fl (7.5-11.1) 02/15/19 07:35 Sodium 140 mmol/L (136-145) 02/15/19 07:35 Potassium 3.7 mmol/L (3.5-5.1) 02/15/19 07:35 Chloride 105 mmol/L (98-107) 02/15/19 07:35 Carbon Dioxide 30 mmol/L (21-32) 02/15/19 07:35 Anion Gap 6 MMOL/L (8-16) L 02/15/19 07:35 BUN 15 mg/dL (7-18) 02/15/19 07:35 Creatinine 0.7 mg/dL (0.55-1.3) 02/15/19 07:35 Creat Clearance w eGFR 121.41 (>60) 02/15/19 07:35 Random Glucose 105 mg/dL (74-106) 02/15/19 07:35 Calcium 7.9 mg/dL (8.5-10.1) L 02/15/19 07:35 Total Bilirubin 0.4 mg/dL (0.2-1) 02/15/19 07:35 AST 151 U/L (15-37) H 02/15/19 07:35 ALT 49 U/L (13-61) 02/15/19 07:35 Alkaline Phosphatase 84 U/L (45-117) 02/15/19 07:35 Total Protein 5.6 g/dl (6.4-8.2) L 02/15/19 07:35 Albumin 3.0 g/dl (3.4-5.0) L 02/15/19 07:35 RPR Titer Nonreactive (NONREACTIVE) 02/15/19 07:35 labs noted Assessment: 02/15/19 13:15 Aox3 no distress, full ROM, ambulating the unit Plan: withdrawal symptoms increase po fluids continue detox continue to monitor
[2019-02-15] MEDS: THIAMINE HCL 100 MG TABLET (FP) PO SCH (22:24)
[2019-02-15] MEDS: MELATONIN 5 MG TABLETS PO PRN (22:24)
--- NOTE | 2019-02-16 09:55 | PN ---
[facility] CIWA - CIWA Score Nausea/Vomitin-No Nausea/No Vomiting Muscle Tremors: 2 Anxiety: 3 Agitation: 3 Paroxysmal Sweats: 3 Orientation: 0-Oriented Tacttile Disturbances: 0-None Auditory Disturbances: 0-None Visual Disturbances: 0-None Headache: 0-None Present CIWA-Ar Total Score: 11 [facility] COWS - Scale Resting Pulse: 0= [place] 80 or Below Sweatin=Flushed/Facial Moisture Restless Observation: 1= Difficult to Sit Still Pupil Size: 0= Normal to Room Light Bone or Joint Aches: 0= None Runny Nose/ Eye Tearin= Nasal Congestion GI Upset > 30mins: 0= None Tremor Observation of Outstretched Hands: 2= Slight Tremor Visible Yawning Observation: 2= >3x During Session Anxiety or Irritability: 2=Irritable/Anxious Goose Flesh Skin: 0=Smooth Skin COWS Score: 10 [facility] Progress Note (SOAP) Subjective: interrupted sleep chills sweats shakes body aches tired anxiety Objective: 02/16/19 09:54 Vital Signs Temperature 98.1 F 02/16/19 09:19 Pulse Rate 65 02/16/19 09:19 Respiratory Rate 18 02/16/19 09:19 Blood Pressure 130/64 02/16/19 09:19 O2 Sat by Pulse Oximetry (%) Laboratory Tests 02/15/19 02/15/19 02/15/19 07:35 07:35 07:35 WBC 4.5 RBC 3.98 L Hgb 12.0 Hct 33.6 L D MCV 84.6 MCH 30.3 MCHC 35.8 RDW 13.9 Plt Count 157 MPV 8.9 Sodium 140 Potassium 3.7 Chloride 105 Carbon Dioxide 30 Anion Gap 6 L BUN 15 Creatinine 0.7 Creat Clearance w eGFR 121.41 Random Glucose 105 Calcium 7.9 L Total Bilirubin 0.4 AST 151 H ALT 49 Alkaline Phosphatase 84 Total Protein 5.6 L Albumin 3.0 L RPR Titer Nonreactive labs noted aaox3 ambulating no acute distress Assessment: 02/16/19 09:55 withdrawal sx Plan: continue detox increase fluids
[2019-02-16] MEDS ORDERED: METHADONE HCL 10 MG TABLET (FOR DETOX USE ONLY) PO ONE (10:00)
[2019-02-16 10:03] LABS: BASO % 0.4 % (0-2.0); EOS % 2.7 % (0-4.5); HEMATOCRIT 35.2 % (35.4-49); HEMOGLOBIN 12.4 GM/dL (11.7-16.9); LYMPH % 45.8 % (8-40); MCHC 35.1 g/dl (32.0-35.9); MEAN CELL VOLUME 85.5 fl (80-96); MEAN PLT VOLUME 8.9 fl (7.5-11.1); MONO % 7.6 % (3.8-10.2); NEUT % 43.5 % (42.8-82.8); PLATELET COUNT 156 K/MM3 (134-434); RBC 4.11 M/mm3 (4.00-5.60); RDW 13.5 % (11.9-15.9); WHITE BLOOD COUNT 4.9 K/mm3 (4.0-10.0)
[2019-02-16 10:04] LABS: ALBUMIN 2.8 g/dl (3.4-5.0); ALK PHOS 79 U/L (45-117); ANION GAP 4 MMOL/L (8-16); BILIRUBIN,TOTAL 0.2 mg/dL (0.2-1); BLOOD UREA NITROGEN 14 mg/dL (7-18); CALCIUM 7.8 mg/dL (8.5-10.1); CHLORIDE 108 mmol/L (98-107); CO2 28 mmol/L (21-32); CREATININE 0.7 mg/dL (0.55-1.3); GLUCOSE,RANDOM 94 mg/dL (74-106); SGOT/AST 80 U/L (15-37); SGPT/ALT 44 U/L (13-61); SODIUM 141 mmol/L (136-145); TOT PROT 5.6 g/dl (6.4-8.2)
[2019-02-16] MEDS: PRENATAL VITAMINS W/ FOLIC ACID TABLET (FP) PO SCH (10:20)
[2019-02-16] MEDS: diazePAM 5 MG TABLET PO SCH ×2 (10:21→21:26)
[2019-02-16] MEDS: THIAMINE HCL 100 MG TABLET (FP) PO SCH (21:25)
[2019-02-16] MEDS: hydrOXYzine PAMOATE 25 MG CAPSULE (FP) PO PRN (21:26)
[2019-02-16] MEDS: cloNIDine HCL 0.1 MG TABLET PO PRN (21:26)
[2019-02-17] MEDS ORDERED: diazePAM 5 MG TABLET PO SCH (06:00)
[2019-02-17] MEDS ORDERED: METHADONE HCL 10 MG TABLET (FOR DETOX USE ONLY) PO ONE (10:00)
[2019-02-17] MEDS: PRENATAL VITAMINS W/ FOLIC ACID TABLET (FP) PO SCH (10:25)
[2019-02-17] MEDS: hydrOXYzine PAMOATE 25 MG CAPSULE (FP) PO PRN (18:28)
[2019-02-17] MEDS: MELATONIN 5 MG TABLETS PO PRN (22:28)
[2019-02-17] MEDS: THIAMINE HCL 100 MG TABLET (FP) PO SCH (22:28)
[2019-02-18] MEDS ORDERED: METHADONE HCL 5 MG TABLET (FOR DETOX USE ONLY) PO ONE (06:00)
[2019-02-18 08:24] VITALS: BP 121/71; PULSE 61; TEMP 97.5
[2019-02-18] MEDS ORDERED: HYDROCORTISONE 1% TOPICAL CREAM 30 GM TUBE TP ONE (09:00)
--- NOTE | 2019-02-18 09:10 | PN ---
[facility] Progress Note Note: Pt c/o eczema, noted dry flaky rash on forehead, ordered hydrocortisone cream 1% .
--- NOTE | 2019-02-18 09:16 | DS ---
[facility] Detox Discharge Summary Admission Date: 02/14/19 Discharge Date: 02/18/19 - History Present History: Alcohol Dependence, Cannabis Dependence, Cocaine Dependence, Opioid Dependence, Sedative Dependence - Physical Exam Results Vital Signs: Vital Signs Temperature 97.5 F L 02/18/19 08:22 Pulse Rate 61 02/18/19 08:22 Respiratory Rate 18 02/18/19 08:22 Blood Pressure 121/71 02/18/19 08:22 O2 Sat by Pulse Oximetry (%) - Treatment Hospital Course: Detox Protocol Followed, Detoxed Safely, Responded well, Discharged Condition Good, Rehab Referral Accepted - Medication Discharge Medications: Ambulatory Orders NK [No Known Home Medication] 05/03/17 - Diagnosis (1) Anxiety disorder Current Visit: No Status: Acute (2) Benzodiazepine dependence Current Visit: Yes Status: Chronic (3) Cannabis dependence Current Visit: Yes Status: Chronic (4) Low back pain Current Visit: Yes Status: Chronic (5) S/P left inguinal herniorrhaphy Current Visit: No Status: Acute (6) Weight decreased Current Visit: No Status: Acute (7) Acne-like skin bumps Current Visit: Yes Status: Chronic (8) Cannabis dependence, uncomplicated Current Visit: Yes Status: Chronic (9) Cocaine dependence, uncomplicated Current Visit: Yes Status: Chronic (10) Nicotine dependence Current Visit: Yes Status: Chronic Qualifiers: Nicotine product type: cigarettes Substance use status: uncomplicated Qualified Code(s): F17.210 - Nicotine dependence, cigarettes, uncomplicated (11) Opioid dependence with withdrawal Current Visit: Yes Status: Chronic (12) Sedative, hypnotic or anxiolytic dependence with withdrawal, uncomplicated Current Visit: Yes Status: Chronic - AMA [facility] Patient [facility]
== END 2019-02-18 09:05 | disposition home or self-care (01) | DRG 773 ==
LOC: YASAS 14:59 → Y6N 16:56
PROVIDERS: ADMIT Surgery; ATTEND Surgery
PROC: HZ2ZZZZ Detoxification Services for Substance Abuse Treatment (ICD-10-PCS; principal; 2019-02-14)
DX: F11.23 Opioid dependence with withdrawal (principal); F10.230 Alcohol dependence with withdrawal, uncomplicated; F13.230 Sedative, hypnotic or anxiolytic dependence with withdrawal, uncomplicated; F14.20 Cocaine dependence, uncomplicated; F12.220 Cannabis dependence with intoxication, uncomplicated; F17.213 Nicotine dependence, cigarettes, with withdrawal; F41.9 Anxiety disorder, unspecified; L30.9 Dermatitis, unspecified; L70.8 Other acne; R63.4 Abnormal weight loss; Z68.28 Body mass index [BMI] 28.0-28.9, adult
CPT/HCPCS: 36415; 71046-TC-FY; 80053; 85025; 85027; 86593; J0735

== ENCOUNTER 2021-04-03 19:52 | Inpatient (IN) | payer OTHER ==
[2021-04-04 00:59] VITALS: BMI 30.5
[2021-04-04] MEDS ORDERED: IBUPROFEN 400 MG TABLET (FP) PO PRN (01:15)
[2021-04-04] MEDS ORDERED: NICOTINE POLACRILEX 2 MG GUM BUC PRN (01:15)
[2021-04-04] MEDS ORDERED: MAGNESIUM HYDROX 2400MG/30ML ORAL SUSPENSION 30 ML CUP PO PRN (01:15)
[2021-04-04] MEDS ORDERED: cloNIDine HCL 0.1 MG TABLET PO PRN (01:15)
[2021-04-04] MEDS ORDERED: BISMUTH SUBSALICYLATE 524 MG/30 ML UD PO PRN (01:15)
[2021-04-04] MEDS ORDERED: ACETAMINOPHEN 325 MG TABLET (FP) PO PRN ×2 (01:15)
[2021-04-04] MEDS ORDERED: MENTHOL/PHENOL 1 EACH UD MM PRN (01:15)
[2021-04-04] MEDS ORDERED: ONDANSETRON *ODT* 4 MG TABLET SL PRN (01:15)
[2021-04-04] MEDS ORDERED: METHADONE HCL 10 MG TABLET (FOR DETOX USE ONLY) PO ONE (01:15)
[2021-04-04] MEDS ORDERED: MAGNESIUM CITRATE 300 ML BOTTLE PO PRN (01:15)
[2021-04-04] MEDS ORDERED: MAG HYDROX/AL HYDROX/SIMETH 30 ML UNIT-DOSE CUP PO PRN (01:15)
[2021-04-04] MEDS: METHOCARBAMOL 500 MG TABLET PO PRN (02:41)
[2021-04-04] MEDS: hydrOXYzine PAMOATE 25 MG CAPSULE (FP) PO SCH ×2 (06:17→10:09)
[2021-04-04] MEDS ORDERED: SELENIUM SULFIDE 2.25% 180 ML SHAMPOO TP SCH (10:00)
[2021-04-04] MEDS ORDERED: CLINDAMYCIN PHOSPHATE 1% TOPICAL SOLUTION 30 ML BOTTLE TP SCH ×2 (10:00→10:28)
[2021-04-04] MEDS: PRENATAL VITAMINS W/ FOLIC ACID TABLET (FP) PO SCH (10:08)
[2021-04-04] MEDS: NICOTINE 14 MG/24 HOURS TOPICAL PATCH TD SCH (10:08)
[2021-04-04] MEDS ORDERED: hydrOXYzine PAMOATE 25 MG CAPSULE (FP) PO PRN (10:32)
[2021-04-04] MEDS ORDERED: SELENIUM SULFIDE TP SCH ×2 (11:00)
[2021-04-04] MEDS: CLEOCIN TP SCH ×2 (11:32→22:48)
[2021-04-04 14:44] LABS: HEMATOCRIT 41.1 % (35.4-49); HEMOGLOBIN 13.7 GM/dL (11.7-16.9); MCH 28.7 pg (25.7-33.7); MCHC 33.4 g/dl (32.0-35.9); MEAN CELL VOLUME 86.2 fl (80-96); MEAN PLT VOLUME 9.1 fl (7.5-11.1); PLATELET COUNT 197 K/MM3 (134-434); RBC 4.76 M/mm3 (4.00-5.60); RDW 14.9 % (11.9-15.9); WHITE BLOOD COUNT 5.8 K/mm3 (4.0-10.0)
[2021-04-04 15:02] LABS: CALCIUM 8.9 mg/dL (8.5-10.1)
[2021-04-04 15:03] LABS: ALBUMIN 3.9 g/dl (3.4-5.0); BLOOD UREA NITROGEN 12.9 mg/dL (7-18)
[2021-04-04 15:06] LABS: CREATININE 0.7 mg/dL (0.55-1.3)
[2021-04-04 15:07] LABS: BILIRUBIN,TOTAL 0.2 mg/dL (0.2-1); TOT PROT 6.9 g/dl (6.4-8.2)
[2021-04-04] MEDS: MELATONIN 5 MG TABLETS PO SCH (22:48)
[2021-04-04] MEDS: THIAMINE HCL 100 MG TABLET (FP) PO SCH (22:48)
[2021-04-05] MEDS ORDERED: METHADONE HCL 10 MG TABLET (FOR DETOX USE ONLY) ONE (08:45)
[2021-04-05] MEDS ORDERED: METHADONE HCL 5 MG TABLET (FOR DETOX USE ONLY) ONE (08:46)
[2021-04-05] MEDS: PRENATAL VITAMINS W/ FOLIC ACID TABLET (FP) PO SCH (09:26)
[2021-04-05] MEDS: CLEOCIN TP SCH ×2 (09:26→22:58)
[2021-04-05] MEDS: SELENIUM SULFIDE TP SCH (09:26)
[2021-04-05] MEDS: NICOTINE 14 MG/24 HOURS TOPICAL PATCH TD SCH (09:26)
[2021-04-05] MEDS ORDERED: METHADONE (DETOX) 20 MG, METHADONE (DETOX) 5 MG PO ONE (10:00)
[2021-04-05] MEDS: MELATONIN 5 MG TABLETS PO SCH (22:58)
[2021-04-05] MEDS: THIAMINE HCL 100 MG TABLET (FP) PO SCH (22:59)
[2021-04-06] MEDS: PRENATAL VITAMINS W/ FOLIC ACID TABLET (FP) PO SCH (09:49)
[2021-04-06] MEDS: CLEOCIN TP SCH ×2 (09:49→23:05)
[2021-04-06] MEDS: NICOTINE 14 MG/24 HOURS TOPICAL PATCH TD SCH (09:49)
[2021-04-06] MEDS: SELENIUM SULFIDE TP SCH (09:49)
[2021-04-06] MEDS ORDERED: METHADONE HCL 10 MG TABLET (FOR DETOX USE ONLY) PO ONE (10:00)
[2021-04-06] MEDS: THIAMINE HCL 100 MG TABLET (FP) PO SCH (23:05)
[2021-04-06] MEDS: MELATONIN 5 MG TABLETS PO SCH (23:05)
[2021-04-07 09:21] VITALS: BP 130/92; PULSE 82; TEMP 96.9
[2021-04-07] MEDS ORDERED: METHADONE HCL 10 MG TABLET (FOR DETOX USE ONLY) ONE (09:46)
[2021-04-07] MEDS ORDERED: METHADONE HCL 5 MG TABLET (FOR DETOX USE ONLY) ONE (09:47)
[2021-04-07] MEDS: METHOCARBAMOL 500 MG TABLET PO PRN (09:53)
[2021-04-07] MEDS: PRENATAL VITAMINS W/ FOLIC ACID TABLET (FP) PO SCH (09:54)
[2021-04-07] MEDS: NICOTINE 14 MG/24 HOURS TOPICAL PATCH TD SCH (09:54)
[2021-04-07] MEDS: SELENIUM SULFIDE TP SCH (09:55)
[2021-04-07] MEDS: CLEOCIN TP SCH (09:55)
[2021-04-07] MEDS ORDERED: METHADONE (DETOX) 10 MG, METHADONE (DETOX) 5 MG PO ONE (10:00)
[2021-04-08 06:06] LABS: SARS-CoV-2 NAA Not Detected (Not Detected)
[2021-04-08] MEDS ORDERED: METHADONE HCL 10 MG TABLET (FOR DETOX USE ONLY) PO ONE (10:00)
[2021-04-09] MEDS ORDERED: METHADONE HCL 5 MG TABLET (FOR DETOX USE ONLY) PO ONE (06:00)
== END 2021-04-07 12:22 | disposition left against medical advice (07) | DRG 770 ==
LOC: YASAS 19:52 → Y3N 04-04 01:29
PROVIDERS: ADMIT Allergy & Immunology; ATTEND Allergy & Immunology
PROC: HZ2ZZZZ Detoxification Services for Substance Abuse Treatment (ICD-10-PCS; principal; 2021-04-04)
DX: F11.23 Opioid dependence with withdrawal (principal); F13.230 Sedative, hypnotic or anxiolytic dependence with withdrawal, uncomplicated; F14.20 Cocaine dependence, uncomplicated; F12.20 Cannabis dependence, uncomplicated; F17.210 Nicotine dependence, cigarettes, uncomplicated; F41.1 Generalized anxiety disorder; L40.9 Psoriasis, unspecified; M54.5 Low back pain; G89.29 Other chronic pain; R63.4 Abnormal weight loss; Z68.30 Body mass index [BMI] 30.0-30.9, adult; Z91.018 Allergy to other foods; Z98.890 Other specified postprocedural states
CPT/HCPCS: 36415; 71046-TC-FY; 80053; 85027; 86780; 93005; 93010; C9803; J0735; U0003; U0005

== ENCOUNTER 2021-05-31 20:27 | Inpatient (IN) | payer OTHER ==
[2021-05-31] MEDS ORDERED: MAGNESIUM CITRATE 300 ML BOTTLE PO PRN (22:43)
[2021-05-31] MEDS ORDERED: MENTHOL/PHENOL 1 EACH UD MM PRN (22:43)
[2021-05-31] MEDS ORDERED: NALOXONE HCL 0.4 MG/ML VIAL IM PRN (22:43)
[2021-05-31] MEDS ORDERED: MAG HYDROX/AL HYDROX/SIMETH 30 ML UNIT-DOSE CUP PO PRN (22:43)
[2021-05-31] MEDS ORDERED: METHOCARBAMOL 500 MG TABLET PO PRN (22:43)
[2021-05-31] MEDS ORDERED: IBUPROFEN 400 MG TABLET (FP) PO PRN (22:43)
[2021-05-31] MEDS ORDERED: ACETAMINOPHEN 325 MG TABLET (FP) PO PRN ×2 (22:43)
[2021-05-31] MEDS ORDERED: P-EPHED 60MG/TRIPROLIDI 2.5MG TABLET PO PRN (22:43)
[2021-05-31] MEDS ORDERED: hydrOXYzine PAMOATE 25 MG CAPSULE (FP) PO PRN (22:43)
[2021-05-31] MEDS ORDERED: BISMUTH SUBSALICYLATE 524 MG/30 ML PO PRN (22:43)
[2021-05-31] MEDS ORDERED: DICYCLOMINE HCL 10 MG CAPSULE PO PRN (22:43)
[2021-05-31] MEDS ORDERED: NALOXONE (NARCAN) HCL 4 MG/0.1 ML SPRAY NS PRN (22:43)
[2021-05-31] MEDS ORDERED: ONDANSETRON *ODT* 4 MG TABLET SL PRN (22:43)
[2021-05-31] MEDS ORDERED: MAGNESIUM HYDROX 2400MG/30ML ORAL SUSPENSION 30 ML CUP PO PRN (22:43)
[2021-05-31] MEDS ORDERED: guaiFENesin 200 MG/10 ML 10 ML UNIT-DOSE CUPS PO PRN (22:43)
[2021-05-31] MEDS ORDERED: NICOTINE POLACRILEX 4 MG GUM BUC PRN (22:43)
[2021-06-01 00:42] VITALS: BMI 27.7
[2021-06-01] MEDS ORDERED: chlordiazePOXIDE HCL 25 MG CAPSULE PO SCH ×2 (05:00→08:34)
[2021-06-01] MEDS ORDERED: cloNIDine HCL 0.1 MG TABLET PO PRN (08:32)
[2021-06-01] MEDS ORDERED: METHADONE HCL 10 MG TABLET (FOR DETOX USE ONLY) PO ONE (08:32)
[2021-06-01] MEDS ORDERED: chlordiazePOXIDE HCL 25 MG CAPSULE PO PRN (08:32)
[2021-06-01] MEDS: PRENATAL VITAMINS W/ FOLIC ACID TABLET (FP) PO SCH (10:45)
[2021-06-01] MEDS: NICOTINE 21 MG/24 HOURS TOPICAL PATCH TD SCH (10:45)
[2021-06-01] MEDS: diazePAM 5 MG TABLET PO SCH (10:48)
[2021-06-01 14:14] LABS: HEMATOCRIT 41.4 % (35.4-49); HEMOGLOBIN 13.4 GM/dL (11.7-16.9); MCHC 32.3 g/dl (32.0-35.9); MEAN CELL VOLUME 86.6 fl (80-96); MEAN PLT VOLUME 9.7 fl (7.5-11.1); PLATELET COUNT 201 10^3/uL (134-434); RBC 4.78 M/mm3 (4.00-5.60); RDW 14.2 % (11.9-15.9); WHITE BLOOD COUNT 4.5 K/mm3 (4.0-10.0)
[2021-06-01 14:18] LABS: ALBUMIN 3.5 g/dl (3.4-5.0); CALCIUM 8.5 mg/dL (8.5-10.1)
[2021-06-01 14:19] LABS: BLOOD UREA NITROGEN 16.4 mg/dL (7-18)
[2021-06-01 14:21] LABS: CREATININE 0.6 mg/dL (0.55-1.3)
[2021-06-01 14:23] LABS: BILIRUBIN,TOTAL 0.2 mg/dL (0.2-1); TOT PROT 6.3 g/dl (6.4-8.2)
[2021-06-01] MEDS: diazePAM 5 MG TABLET PO PRN (18:01)
[2021-06-01] MEDS: THIAMINE HCL 100 MG TABLET (FP) PO SCH (21:35)
[2021-06-01] MEDS ORDERED: SUVOREXANT 10 MG TABLET PO PRN (22:00)
[2021-06-01] MEDS ORDERED: MELATONIN 5 MG TABLETS PO SCH (22:00)
[2021-06-02] MEDS ORDERED: chlordiazePOXIDE HCL 25 MG CAPSULE PO SCH (05:00)
[2021-06-02] MEDS: diazePAM 5 MG TABLET PO SCH ×5 (05:57→22:04)
[2021-06-02] MEDS ORDERED: METHADONE HCL 10 MG TABLET (FOR DETOX USE ONLY) ONE (08:49)
[2021-06-02] MEDS ORDERED: METHADONE HCL 5 MG TABLET (FOR DETOX USE ONLY) ONE (08:49)
[2021-06-02] MEDS: PRENATAL VITAMINS W/ FOLIC ACID TABLET (FP) PO SCH (09:58)
[2021-06-02] MEDS: NICOTINE 21 MG/24 HOURS TOPICAL PATCH TD SCH (09:59)
[2021-06-02] MEDS: diazePAM 5 MG TABLET PO PRN (10:00)
[2021-06-02] MEDS ORDERED: METHADONE (DETOX) 20 MG, METHADONE (DETOX) 5 MG PO ONE (10:00)
[2021-06-02] MEDS: THIAMINE HCL 100 MG TABLET (FP) PO SCH (22:04)
[2021-06-03] MEDS ORDERED: chlordiazePOXIDE HCL 10 MG CAPSULE PO PRN
[2021-06-03] MEDS ORDERED: chlordiazePOXIDE HCL 10 MG CAPSULE PO SCH (05:00)
[2021-06-03] MEDS: diazePAM 5 MG TABLET PO SCH ×2 (05:10→17:54)
[2021-06-03] MEDS ORDERED: METHADONE HCL 10 MG TABLET (FOR DETOX USE ONLY) PO ONE (10:00)
[2021-06-03] MEDS: PRENATAL VITAMINS W/ FOLIC ACID TABLET (FP) PO SCH (10:12)
[2021-06-03] MEDS: NICOTINE 21 MG/24 HOURS TOPICAL PATCH TD SCH (10:12)
[2021-06-03] MEDS: diazePAM 5 MG TABLET PO PRN (10:14)
[2021-06-03] MEDS: THIAMINE HCL 100 MG TABLET (FP) PO SCH (23:03)
[2021-06-04] MEDS ORDERED: chlordiazePOXIDE HCL 10 MG CAPSULE PO SCH (05:00)
[2021-06-04] MEDS ORDERED: diazePAM 5 MG TABLET PO ONE (06:00)
[2021-06-04] MEDS ORDERED: METHADONE HCL 5 MG TABLET (FOR DETOX USE ONLY) ONE (08:52)
[2021-06-04] MEDS ORDERED: METHADONE HCL 10 MG TABLET (FOR DETOX USE ONLY) ONE (08:52)
[2021-06-04] MEDS: NICOTINE 21 MG/24 HOURS TOPICAL PATCH TD SCH (09:55)
[2021-06-04] MEDS: PRENATAL VITAMINS W/ FOLIC ACID TABLET (FP) PO SCH (09:55)
[2021-06-04] MEDS ORDERED: METHADONE (DETOX) 10 MG, METHADONE (DETOX) 5 MG PO ONE (10:00)
[2021-06-04] MEDS: THIAMINE HCL 100 MG TABLET (FP) PO SCH (22:15)
[2021-06-05] MEDS ORDERED: chlordiazePOXIDE HCL 10 MG CAPSULE PO ONE (05:00)
[2021-06-05 08:53] VITALS: TEMP 97.3
[2021-06-05] MEDS ORDERED: METHADONE HCL 10 MG TABLET (FOR DETOX USE ONLY) PO ONE (10:00)
[2021-06-05] MEDS: PRENATAL VITAMINS W/ FOLIC ACID TABLET (FP) PO SCH (10:02)
[2021-06-05] MEDS: NICOTINE 21 MG/24 HOURS TOPICAL PATCH TD SCH (10:05)
[2021-06-05 13:07] VITALS: BP 120/70; PULSE 91
[2021-06-06] MEDS ORDERED: METHADONE HCL 5 MG TABLET (FOR DETOX USE ONLY) PO ONE (06:00)
== END 2021-06-05 13:39 | disposition home or self-care (01) | DRG 773 ==
LOC: YASAS 20:27 → Y6N 06-01 09:23 → UNDOADMIN 06-01 09:23
PROVIDERS: ADMIT Allergy & Immunology; ATTEND Allergy & Immunology
PROC: HZ2ZZZZ Detoxification Services for Substance Abuse Treatment (ICD-10-PCS; principal; 2021-06-01)
DX: F11.23 Opioid dependence with withdrawal (principal); F10.230 Alcohol dependence with withdrawal, uncomplicated; F14.20 Cocaine dependence, uncomplicated; F12.20 Cannabis dependence, uncomplicated; F17.213 Nicotine dependence, cigarettes, with withdrawal; F19.24 Other psychoactive substance dependence with psychoactive substance-induced mood disorder; F19.282 Other psychoactive substance dependence with psychoactive substance-induced sleep disorder; F41.1 Generalized anxiety disorder; R76.11 Nonspecific reaction to tuberculin skin test without active tuberculosis; M54.5 Low back pain; G89.29 Other chronic pain; L40.9 Psoriasis, unspecified; Z91.011 Allergy to milk products; Z91.018 Allergy to other foods; Z56.0 Unemployment, unspecified; Z59.0 Homelessness
CPT/HCPCS: 36415; 80053; 85027; 86780; C9803; J0735; U0003; U0005

== ENCOUNTER 2023-05-28 14:57 | Inpatient (IN) | payer OTHER ==
[2023-05-28 15:49] VITALS: BMI 26.6
[2023-05-28] MEDS ORDERED: BENZONATATE 200 MG CAPSULE PO PRN (18:48)
[2023-05-28] MEDS ORDERED: BENZOCAINE/MENTHOL (CHLORASEPTIC ) LOZENGE MM PRN (18:48)
[2023-05-28] MEDS ORDERED: ONDANSETRON *ODT* 4 MG TABLET SL PRN (18:48)
[2023-05-28] MEDS ORDERED: DICYCLOMINE HCL 10 MG CAPSULE PO PRN (18:48)
[2023-05-28] MEDS ORDERED: ACETAMINOPHEN 325 MG TABLET (FP) PO PRN (18:48)
[2023-05-28] MEDS ORDERED: NALOXONE HCL (KLOXXADO) 8 MG SPRAY NS PRN (18:48)
[2023-05-28] MEDS ORDERED: BISMUTH SUBSALICYLATE 524 MG/30 ML PO PRN (18:48)
[2023-05-28] MEDS ORDERED: IBUPROFEN 600 MG TABLET (FP) PO PRN (18:48)
[2023-05-28] MEDS ORDERED: NALOXONE HCL 0.4 MG/ML VIAL IM PRN (18:48)
[2023-05-28] MEDS ORDERED: NICOTINE POLACRILEX 2 MG GUM BUC PRN (18:48)
[2023-05-28] MEDS ORDERED: NICOTINE 10 MG CARTRIDGE (INHALER) IH PRN (18:48)
[2023-05-28] MEDS ORDERED: guaiFENesin 600 MG TABLET.ER (FP) PO PRN (18:48)
[2023-05-28] MEDS ORDERED: P-EPHED 60MG/TRIPROLIDI 2.5MG TABLET PO PRN (18:48)
[2023-05-28] MEDS ORDERED: IBUPROFEN 400 MG TABLET (FP) PO PRN (18:48)
[2023-05-28] MEDS ORDERED: MAG HYDROX/AL HYDROX/SIMETH 30 ML UNIT-DOSE CUP PO PRN (18:48)
[2023-05-28] MEDS ORDERED: MAGNESIUM HYDROX 2400MG/30ML ORAL SUSPENSION 30 ML CUP PO PRN (18:48)
[2023-05-28] MEDS ORDERED: LOPERAMIDE HCL 2 MG CAPSULE PO PRN (18:48)
[2023-05-28] MEDS ORDERED: POLYETHYLENE GLYCOL (HEALTHYLAX) 3350 17 GM PACKET PO PRN (18:48)
[2023-05-28] MEDS ORDERED: methaDONE HCL 10 MG TABLET (FOR DETOX USE ONLY) PO ONE (18:50)
[2023-05-28] MEDS ORDERED: diazePAM 5 MG TABLET ONE (19:07)
[2023-05-28] MEDS ORDERED: methaDONE HCL 10 MG TABLET (FOR DETOX USE ONLY) ONE (19:08)
[2023-05-28] MEDS: diazePAM 5 MG TABLET PO PRN (20:21)
[2023-05-28] MEDS: BACITRACIN 0.9 GM PACKET TP SCH (22:32)
[2023-05-28] MEDS: THIAMINE HCL 100 MG TABLET (FP) PO SCH (22:32)
[2023-05-28] MEDS: cloNIDine HCL 0.1 MG TABLET PO PRN (22:32)
[2023-05-28] MEDS: MELATONIN 5 MG TABLETS PO SCH (22:33)
[2023-05-29] MEDS: diazePAM 5 MG TABLET PO PRN ×2 (07:14→17:02)
[2023-05-29] MEDS: BACITRACIN 0.9 GM PACKET TP SCH ×2 (10:28→22:54)
[2023-05-29] MEDS: cloNIDine HCL 0.1 MG TABLET PO PRN ×2 (10:28→17:02)
[2023-05-29] MEDS: hydrOXYzine PAMOATE 25 MG CAPSULE (FP) PO PRN (10:28)
[2023-05-29] MEDS: PRENATAL VITAMINS W/ FOLIC ACID TABLET (FP) PO SCH (10:28)
[2023-05-29] MEDS: METHOCARBAMOL 500 MG TABLET PO PRN (10:28)
[2023-05-29 10:41] LABS: HEMATOCRIT 42.1 % (35.4-49); HEMOGLOBIN 14.3 GM/dL (11.7-16.9); MEAN CELL VOLUME 82.3 fl (80-96); PLATELET COUNT 229 10^3/uL (134-434); RBC 5.11 M/mm3 (4.00-5.60); RDW 14.2 % (11.9-15.9); WHITE BLOOD COUNT 5.8 K/mm3 (4.0-10.0)
[2023-05-29 10:49] LABS: POTASSIUM 4.3 mmol/L (3.5-5.1)
[2023-05-29 10:57] LABS: ALBUMIN 3.5 g/dl (3.4-5.0); BLOOD UREA NITROGEN 9.4 mg/dL (7-18)
[2023-05-29 11:00] LABS: CREATININE 0.6 mg/dL (0.55-1.3)
[2023-05-29 11:01] LABS: BILIRUBIN,TOTAL 0.8 mg/dL (0.2-1); TOT PROT 6.3 g/dl (6.4-8.2)
[2023-05-29] MEDS: THIAMINE HCL 100 MG TABLET (FP) PO SCH (23:26)
[2023-05-29] MEDS: MELATONIN 5 MG TABLETS PO SCH (23:26)
[2023-05-30] MEDS: diazePAM 5 MG TABLET PO PRN ×2 (04:57→14:09)
[2023-05-30] MEDS: cloNIDine HCL 0.1 MG TABLET PO PRN ×2 (04:57→10:38)
[2023-05-30] MEDS ORDERED: methaDONE HCL 10 MG TABLET (FOR DETOX USE ONLY) PO ONE (10:00)
[2023-05-30] MEDS: hydrOXYzine PAMOATE 25 MG CAPSULE (FP) PO PRN (10:38)
[2023-05-30] MEDS: METHOCARBAMOL 500 MG TABLET PO PRN (10:38)
[2023-05-30] MEDS: PRENATAL VITAMINS W/ FOLIC ACID TABLET (FP) PO SCH (10:38)
[2023-05-30] MEDS: BACITRACIN 0.9 GM PACKET TP SCH ×2 (10:39→23:18)
[2023-05-30] MEDS: MELATONIN 5 MG TABLETS PO SCH (23:18)
[2023-05-30] MEDS: THIAMINE HCL 100 MG TABLET (FP) PO SCH (23:19)
[2023-05-31] MEDS: diazePAM 5 MG TABLET PO PRN ×2 (04:00→10:12)
[2023-05-31] MEDS: PRENATAL VITAMINS W/ FOLIC ACID TABLET (FP) PO SCH (10:11)
[2023-05-31] MEDS: hydrOXYzine PAMOATE 25 MG CAPSULE (FP) PO PRN (10:12)
[2023-05-31] MEDS: BACITRACIN 0.9 GM PACKET TP SCH (10:12)
[2023-05-31] MEDS: METHOCARBAMOL 500 MG TABLET PO PRN (10:12)
[2023-05-31 13:20] VITALS: BP 160/105; PULSE 100; RESP 17; TEMP 98.4
[2023-06-01] MEDS ORDERED: methaDONE HCL 10 MG TABLET (FOR DETOX USE ONLY) PO ONE (10:00)
== END 2023-05-31 13:55 | disposition left against medical advice (07) | DRG 770 ==
LOC: YASAS 14:57 → Y6N 18:48
PROVIDERS: ADMIT Allergy & Immunology; ATTEND Surgery
PROC: HZ2ZZZZ Detoxification Services for Substance Abuse Treatment (ICD-10-PCS; principal; 2023-05-28)
DX: F11.23 Opioid dependence with withdrawal (principal); F14.20 Cocaine dependence, uncomplicated; F12.20 Cannabis dependence, uncomplicated; F17.210 Nicotine dependence, cigarettes, uncomplicated; M54.50 Low back pain, unspecified; G89.29 Other chronic pain; Z86.11 Personal history of tuberculosis
CPT/HCPCS: 36415; 80053; 85027; 86780; 87635